=== PATIENT | female | born 1995 | race Caucasian/White ===

== ENCOUNTER 2024-11-29 22:15 | Outpatient (CLI) | payer MEDICAID, SELFPAY ==
[2024-11-29 22:38] VITALS: BP 114/74; PULSE 75; PULSE 77; RESP 16; TEMP 36.8; O2SAT 96
[2024-11-29 22:45] LABS: Appearance Urine Clear (Clear)
[2024-11-29 22:50] LABS: Amnisure Rom* Negative
--- NOTE | 2024-11-29 23:35 | PC.OBNST ---
NST Note NST Note Start: 11/29/24 22:29 Freq: ONCE Status: Active Protocol: Document 11/29/24 23:07 SHLOMO (Rec: 11/29/24 23:08 SHLOMO Castellanos) NST Note 3 Para (# of births) 1 EDC 12/08/24 Gestational Age In 38 Weeks & 5 Days Weeks & Days Patient Presented Leaking fluid with Complaint(s) of Other Complaints Amnisure and UA negative Reactive Yes Appropriate for Yes Gestational Age JIMMY Vasquez RN Date 11/29/24 Reactive Yes Appropriate for Yes Gestational Age JIMMY Vaca RN Date 11/29/24 OB NST charge Yes Complete NST Note Yes via Write Note The provider's electronic signature indicates the NST is reactive/appropriate for gestational age. *Note to provider: If an addendum is required, open the patient's chart and click on the note under the Nurse/Allied Health tab.
== END 2024-11-29 23:18 | disposition home or self-care (01) ==
LOC: OB OUT 22:16 → OB 22:16
PROVIDERS: PCP Family Medicine; Visit Provider Family Medicine
DX: O47.1 False labor at or after 37 completed weeks of gestation (principal); Z3A.38 38 weeks gestation of pregnancy
CPT/HCPCS: 59025; 81001; 84112; 87086; G0463

== ENCOUNTER 2024-12-05 17:01 | Inpatient (IN) | payer MEDICAID, SELFPAY ==
[2024-12-05 17:10] VITALS: PULSE 89; O2SAT 97
[2024-12-05 17:15] VITALS: BP 119/78; PULSE 83; PULSE 84; O2SAT 94
[2024-12-05 17:27] VITALS: BMI 28.6
--- NOTE | 2024-12-05 17:48 | PM.OBHPLI ---
OB - H&P: HPI Labor/Induction History of Present Illness Date Seen: 12/05/24 Chief Complaint: The patient is a 29 year old 3 para 1 at 39.4 weeks gestation by first trimester US, who presents for elective IOL. Chief complaint: IOL- Elective : 3 Para: 1 Narrative: Shabana Heck is a 29 year old at 39.4 weeks' gestation who presents for elective IOL. Has been feeling well. Intermittent contractions and has had some bloody show following cervical checks in clinic. No LOF. Baby has been active. Denies headaches, vision changes, or RUQ pain. 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 History of Present care: good care Labs Blood type: B (+) positive Rubella: immune RPR/VDLR: nonreactive GBS status: positive HBsAG: negative Meds Home Medications and Allergies Home Medications ?Medication ?Instructions ?Recorded ?Confirmed ?Type lamotrigine 200 mg tablet 200 mg PO DAILY 07/30/23 12/05/24 History lisdexamfetamine 10 mg capsule 10 mg PO DAILY 07/30/23 12/05/24 History lisdexamfetamine 20 mg capsule 20 mg PO DAILY 07/30/23 12/05/24 History (Vyvanse) Held on 12/05/24. Instructions: Doctor's Order vitamin no.167-folic acid 1 tab PO DAILY 08/02/24 12/05/24 History 400 mcg-dha 25 mg chewable tablet (One-A-Day ) acyclovir 400 mg tablet 400 mg PO 3XD 11/29/24 12/05/24 History albuterol sulfate 2.5 mg/3 mL 2.5 mg continuous nebulization Q6H 11/29/24 12/05/24 History (0.083 %) solution for nebulization PRN dyspnea Allergies Allergy/AdvReac Type Severity Reaction Status Date / Time Sulfa (Sulfonamide Allergy Intermediate Verified 12/05/24 17:32 Antibiotics) OB - H&P: Exam Physical Exam: Vital signs: Pulse BP Pulse Ox 83 119/78 94 12/05/24 17:15 12/05/24 17:15 12/05/24 17:15 Narrative: Gen: alert, pleasant, NAD Resp: CTA b/l CV: RRR, no murmurs Abd: gravid, nontender to palpation SVE: 1 cm/50%/-3, cephalic FHT: baseline 130, + accels, - decels, moderate variability [place]: uterine irritability OB - Problem Based A/P Additional Plan (1) Term : Status: Acute (2) Positive GBS test: Status: Acute Plan at 39w4d here for elective IOL. GBS positive. 1. IOL - Cook catheter placed with 60cc/60cc at 1740. Patient tolerated well. Discussed that this can remain in for 12 hours or until SROM or sponatenous expulsion. - Plan to begin low-dose Pitocin titration at 00:00 on 12/06. - anticipate 2. GBS positive - begin ABX ppx (ampicillin) along with Pitocin at 00:00 on 12/06 unless more active labor begins prior to this. Elena Bowser DO
[2024-12-05 17:54] VITALS: RESP 16; TEMP 36.8
[2024-12-05 18:58] LABS: Hematocrit 36.1 % (33.0-51.0); Hemoglobin* 12.6 gm/dL (12.0-16.0); Immature Granulocytes Pct Auto 0.5 %; Mean Corpuscular HGB Conc 35 gm/dL (32-36); Mean Corpuscular Hemoglobin 32 pg (26-34); Mean Corpuscular Volume 91 fL (80-100); RDW Coefficient of Variation % 13.1 % (11.5-15.5); Red Blood Count 3.98 m/uL (4.00-5.20); White Blood Count* 12.75 K/uL (4.50-11.00)
[2024-12-05 19:09] LABS: Immature Granulocytes Abs Auto 0.10 K/uL (0.00-0.30); Lymphocytes Absolute Auto 2.40 K/uL (0.90-2.90)
[2024-12-05 19:10] LABS: Slide Review Reflex No
[2024-12-05 20:49] VITALS: PULSE 72; O2SAT 97
[2024-12-05 20:50] VITALS: BP 123/81; PULSE 68; TEMP 36.7
[2024-12-06] VITALS (65 sets, daily range): BP systolic 102–140; BP diastolic 53–88; PULSE 56–88; RESP 16–20; TEMP 36.4–36.8; O2SAT 87–100
[2024-12-06] MEDS: AMPICILLIN 2 GM in 0.9 % SODIUM CHLORIDE Mini-bag 100 ML IVPB (00:04)
[2024-12-06] MEDS: OXYTOCIN 30 unit/500 ML in NS 30 UNIT/500 ML BAG IVPB (00:04)
[2024-12-06] MEDS: LACTATED RINGERS 1000 ML 1,000 ML 75 ML IV (00:05)
[2024-12-06] MEDS: AMPICILLIN 1 GM in 0.9 % SODIUM CHLORIDE Mini-bag 100 ML IVPB ×2 (04:35→08:12)
[2024-12-06] MEDS: LACTATED RINGERS 1000 ML 1,000 ML 1200 ML IV (05:50)
--- NOTE | 2024-12-06 06:25 | PM.ANBPRC ---
[facility] Medical History (Updated 12/05/24 @ 18:04 by Elena Bowser, ) Positive GBS test ?B95.1 - Streptococcus, group B, as the cause of diseases classified elsewhere (ICD-10) Term ?Z34.90 - Encounter for supervision of normal , unspecified, unspecified trimester (ICD-10) Social History What is your current living situation?: I presently have a place to live Problems where you live: no known problems In the past 12 months, utilities in danger of being shut off: no In past 12 months, lack of transportation kept you from medical appts, meetings, work, or getting things needed for daily living: no In the past 12 mos, have been you worried that your food would run out before you had money to buy more?: never true In the past 12 mos, the food you bought just didn't last and you didn't have money to buy more?: never true Smoking Status: Former smoker How often does anyone, including family, friends and others, physically hurt you: never How often does anyone, including family, friends and others, insult or talk down to you: never How often does anyone, including family, friends and others, threaten you with harm: never How often does anyone, including family, friends and others, scream or curse at you: never Meds Home Medications and Allergies Home Medications ?Medication ?Instructions ?Recorded ?Confirmed ?Type lamotrigine 200 mg tablet 200 mg PO DAILY 07/30/23 12/05/24 History lisdexamfetamine 10 mg capsule 10 mg PO DAILY 07/30/23 12/05/24 History lisdexamfetamine 20 mg capsule 20 mg PO DAILY 07/30/23 12/05/24 History (Vyvanse) Held on 12/05/24. Instructions: Doctor's Order vitamin no.167-folic acid 1 tab PO DAILY 08/02/24 12/05/24 History 400 mcg-dha 25 mg chewable tablet (One-A-Day ) acyclovir 400 mg tablet 400 mg PO 3XD 11/29/24 12/05/24 History albuterol sulfate 2.5 mg/3 mL 2.5 mg continuous nebulization Q6H 11/29/24 12/05/24 History (0.083 %) solution for nebulization PRN dyspnea Allergies Allergy/AdvReac Type Severity Reaction Status Date / Time Sulfa (Sulfonamide Allergy Intermediate Verified 12/05/24 17:32 Antibiotics) Results Labs Labs: Laboratory Results - last 24 hr 12/05/24 18:48 WBC 12.75 H RBC 3.98 L Hgb 12.6 Hct 36.1 MCV 91 MCH 32 MCHC 35 RDW Coeff of [place] 13.1 Plt Count 185 Neut % (Auto) 72.9 H Lymph % (Auto) 18.5 L [place] % (Auto) 6.3 Eos % (Auto) 1.6 Baso % (Auto) 0.2 Neut # (Auto) 9.30 H Lymph # (Auto) 2.40 [place] # (Auto) 0.80 Eos # (Auto) 0.20 Baso # (Auto) 0.00 Abs Immat Gran (auto) 0.10 Imm/Tot Granulo (auto) 0.5 Blood Type B Positive Antibody Screen NEGATIVE Vital Signs Vital Signs: Last Vital Signs Temp 98 F 12/06/24 03:43 Pulse 74 12/06/24 06:23 Resp 16 12/05/24 17:54 BP 128/69 12/06/24 06:23 Pulse Ox 90 12/06/24 06:21 Weight: 90.628 kg Height: 177.8 cm Anesthesia Procedures Epidural Insertion Patient Location: OB Start Time: 05:45 Stop Time: 06:25 Start Date: 12/06/24 Stop Date: 12/06/24 Reason for Block: procedure for pain Patient Position: sitting Performed By: Josue Slater Preanesthetic Checklist: IV checked, risks and benefits discussed, surgical consent, monitors and equipment checked, pre-op evaluation, timeout performed and anesthesia consent Prep: chlorhexidine gluconate Monitoring: blood pressure monitoring, continuous pulse oximetry and heart rate Approach: midline Vertebral Space: lumbar (1-5) Epidural Technique: KARI air Needle Type: Tuohy needle Injection Technique: continuous catheter Needle gauge: 17 Needle Length (cm): 10 cm Needle Insertion Depth (cm): 7 Catheter Gauge: 19 Catheter Type: multi-orifice Catheter at skin depth (cm): 13 Test Dose Result: negative and lidocaine 1.5% with epinephrine 1 to 200,000
[2024-12-06] MEDS: ROPIVACAINE 0.2% 100 ml 100 ML 12 MG EPIDURAL (06:28)
[2024-12-06] MEDS: LIDOCAINE 2% (PF) 5 ML VIAL EPIDURAL (06:29)
[2024-12-06] MEDS: LACTATED RINGERS 1000 ML 1,000 ML 1125 ML IV (08:25)
--- NOTE | 2024-12-06 08:42 | P.OBPN_ITS ---
Subjective Date Seen: 12/06/24 Narrative: Called to evaluate patient around 0430 this morning. Had been having int ermittent variable decelerations. Throughout the morning, this continued. However, patient's labor also progressed appropriately and she was completely dilated and began pushing at 0650. Baby continud to have variable decelerations throughout stage II. Objective Vital Signs: Last Vital Signs Temp 97.8 F 12/06/24 06:47 Pulse 64 12/06/24 08:36 Resp 16 12/05/24 17:54 BP 109/56 L 12/06/24 08:36 Pulse Ox 99 12/06/24 06:32 Plan Plan: Consulted Dr. Glaser regarding recurrent variable decelerations. Decision made to proceed with operative vaginal delivery (VAVD). See her documentation for further details.
[2024-12-06] MEDS: ACETAMINOPHEN 500 MG TABLET 1000 MG PO ×3 (09:12→22:15)
--- NOTE | 2024-12-06 10:34 | PM.OBCN1 ---
OB - CN: HPI Date of Consult Time Seen by Provider: 08:05 Date Seen: 12/06/24 Patient: [facility] Patient Consult date: 12/06/24 Requesting Physician: Elena Bowser DO Primary Care Provider: Elena Bowser DO Consult Narrative Narrative: The patient is a 29 year old G 2 P 1 at 39 weeks gestation that was admitted to the Center on 12/05/24 for elective induction of labor. is complicated by history of genital herpes (on suppressive therapy), family history of congenital heart disease (status post normal echo), FOB with cleidocranial dysplasia (s/p MFM consult and US), ADHD, bipolar disorder, history of substance use disorder (mess, in remission since 2018 and THC that was not used in ), asthma. She is an established patient of Dr. Bowser with [facility], please see her note for complete details. Last growth ultrasound with MFM on 09/30/2024 was 54%ile, no risk factors for macrosomia (history of macrosomia, late term gestation, GDM, etc.). Ob curbside occurred around 0755, due to category 2 FHR. On review of the tracing, recurrent variable decelerations were noted with each pushing effort. recovery was noted to be slightly delayed, though there were no recent prolonged decelerations. Baseline between contractions was 150 beats per minute with moderate variability. Reportedly, patient had been making good descent through her pushing process. I recommended a repeat cervical exam to assess for progress in the 2nd stage. Patient was noted to be 10/100 and +3 station. She then had a prolonged deceleration at 0805, where Ob consultation was requested for consideration of operative vaginal delivery. I presented the bedside, introduced myself the patient and partner. Pitocin was turned off. Maternal repositioning efforts were ongoing, IV fluid bolus ongoing. She consented to a cervical exam, where she was noted to be complete and +2 station. position was suspected to be direct OA. At the time of this exam, baby was in a prolonged deceleration where FSE was requested. Verbal consent obtained and FSE was applied. Discussed with patient that I would like to monitor pushing effort with her, to assess for descent. Reportedly, she has made descent from 0 to +2 station in her 1 hour of pushing. Still, I explained that this is vital component of my assessment in terms of her candidacy for an operative vaginal delivery. With her next two pushing efforts, descent was noted from +2 to +3. heart rate tracing continue to be notable for recurrent variable decelerations with a slow return to baseline with maintained moderate variability. Still, given concern for nonreassuring status I did discuss with her the process of an operative vaginal delivery. Explained the respective risks/benefits of an operative vaginal delivery with both forceps and vacuum modalities, including risk of obstetric laceration (3/4 degree), shoulder dystocia, hemorrhage, scalp bruising, cephalohematoma, intracranial bleeding, laceration, nerve palsy. Given multiparity and demonstrated descent with exams, I do feel patient is a reasonable candidate for vacuum assisted vaginal delivery. After counseling, verbal consent was provided at approximately 0812. OR crew was notified to present in case of failed operative vaginal delivery. She continued to push with contractions while this conversation was ongoing, where at 0816 recurrent variables persisted but there were no further prolonged decelerations and return to baseline occurred more readily. Moderate variability and normal baseline was still noted. Excellent maternal effort and descent was noted, where VAVD was not emergently required and thus 1 last attempt at was completed. Ultimately, she had another variable in to prolonged deceleration at 0823 where I recommended we proceed to outlet VAVD as delivery was not imminent. Patient provided verbal consent again. Please see subsequent delivery note for details. Dr. Bowser to serve as Pediatrics provider in the setting of operative vaginal delivery. History History 3 Elective abortions Para 2 Spontaneous abortions Hx # Term Pregnancies Ectopic pregnancies Hx # Pregnancies Multiple births Number of Living Children 1 Labs Blood type: B (+) positive Rubella: immune RPR/VDLR: nonreactive GBS status: positive HBsAG: negative OB Labs: Lab Assessment Start: 12/05/24 17:25 Freq: ONCE Status: Complete Protocol: PC.OBGBS Activity Type Activity Date Activity User E-sign Co-sign Detail Recorded Client Recorded Date Recorded By Document 12/05/24 17:25 AB No Response 12/05/24 17:26 ABH 12/05/24 17:25 Lab Assessment GBS Status positive Is Patient Allergic to Penicillin? No Treatment Required OK Are Labs Available Yes Maternal Blood Type B Maternal RH Factor Positive Evaluate Maternal Rubella Immune Status Immune Hepatitis B Surface Antigen Negative Maternal HIV Status Negative Maternal Syphillis (RPR) Status Negative PFSH [facility] Medical History (Updated 12/05/24 @ 18:04 by Elena Bowser DO) Positive GBS test ?B95.1 - Streptococcus, group B, as the cause of diseases classified elsewhere (ICD-10) Term ?Z34.90 - Encounter for supervision of normal , unspecified, unspecified trimester (ICD-10) Social History What is your current living situation?: I presently have a place to live Problems where you live: no known problems In the past 12 months, utilities in danger of being shut off: no In past 12 months, lack of transportation kept you from medical appts, meetings, work, or getting things needed for daily living: no In the past 12 mos, have been you worried that your food would run out before you had money to buy more?: never true In the past 12 mos, the food you bought just didn't last and you didn't have money to buy more?: never true Smoking Status: Former smoker How often does anyone, including family, friends and others, physically hurt you: never How often does anyone, including family, friends and others, insult or talk down to you: never How often does anyone, including family, friends and others, threaten you with harm: never How often does anyone, including family, friends and others, scream or curse at you: never Meds Home Medications and Allergies Home Medications ?Medication ?Instructions ?Recorded ?Confirmed ?Type lamotrigine 200 mg tablet 200 mg PO DAILY 07/30/23 12/05/24 History lisdexamfetamine 10 mg capsule 10 mg PO DAILY 07/30/23 12/05/24 History lisdexamfetamine 20 mg capsule 20 mg PO DAILY 07/30/23 12/05/24 History (Vyvanse) Held on 12/05/24. Instructions: Doctor's Order vitamin no.167-folic acid 1 tab PO DAILY 08/02/24 12/05/24 History 400 mcg-dha 25 mg chewable tablet (One-A-Day ) acyclovir 400 mg tablet 400 mg PO 3XD 11/29/24 12/05/24 History albuterol sulfate 2.5 mg/3 mL 2.5 mg continuous nebulization Q6H 11/29/24 12/05/24 History (0.083 %) solution for nebulization PRN dyspnea Allergies Allergy/AdvReac Type Severity Reaction Status Date / Time Sulfa (Sulfonamide Allergy Intermediate Verified 12/05/24 17:32 Antibiotics) OB - H&P: Exam Physical Exam: Vital signs: Temp Pulse Resp BP Pulse Ox 97.8 F 67 16 111/69 99 12/06/24 06:47 12/06/24 10:19 12/05/24 17:54 12/06/24 10:19 12/06/24 06:32 OB - Results Labs Labs: Short CBC 12/05/24 Range/Units 18:48 WBC 12.75 H (4.50-11.00) K/uL Hgb 12.6 (12.0-16.0) gm/dL Hct 36.1 (33.0-51.0) % Plt Count 185 (140-440) K/uL OB - CN: A/P Assessment and Plan (1) Term : Status: Acute (2) Positive GBS test: Status: Acute
--- NOTE | 2024-12-06 10:50 | W.PM.VAGDEL1 ---
Procedure Procedure Done: only (Vacuum-assisted vaginal delivery) Procedure Details: Vacuum assisted vaginal delivery Events: Labor Induction and Other (genital herpes (on suppressive therapy), asthma, bipolar disorder, ADHD, history of substance use disorder, FHx of congenital heart disease, FOB with cleidocranial dysplasia) Intrapartal Events: Labor Induction Delivery augmentation: pitocin Delivery monitor: internal FHT Route of delivery: vacuum extraction Indication for instrumentation: nonreassuring FHR tracing Laceration description: None Estimated blood loss (mL): 25 Anesthesia type: Epidural Disposition: floor Complications: Persistent category 2 FHR tracing necessitating expedited delivery with vacuum-assistance Narrative: Danyelle Heck is a 29 year old G 2 P 1 at 39w5d GA that was admitted to the Center on 12/05/24 for elective induction of labor. is complicated by history of genital herpes (on suppressive therapy), family history of congenital heart disease (status post normal echo), FOB with cleidocranial dysplasia (s/p MFM consult and US), ADHD, bipolar disorder, history of substance use disorder (mess, in remission since 2017 and THC that was not used in ), asthma. heart tones on admission were category 1. She is an established patient of Dr. Mague Bass. Her labor was induced with Cook catheter, Pitocin and epidural was utilized for pain management. Status of bag of hernandez: AROM at 0530 but no apparent fluid was expressed, meconium noted at time of delivery. heart tones during active labor were category 2. She was complete at 0637 and started pushing at 0650. Ob consultation was requested at 0805 in the setting of non-reassuring heart tones for consideration of operative delivery. See my prior consult note for details. Briefly, patient was noted to make excellent descent from +2 to +4 during 20 minutes from 0805 to 0825 where I was present and at the bedside actively coaching her through pushing. She verbally consented for operative vaginal delivery, where consent was provided at about 0812 but given her good progress and temporarily improved recovery this was deferred in hopes of imminent . At approximately 0826 baby was noted to have another recurrent variable to a radha of 70bpm that was prolonged. Recommendation for operative vaginal delivery via vacuum assisted vaginal delivery was officially given, patient again provided verbal consent to proceed. Patient's bladder had been recently emptied, status post catheter removal. Vaginal exam revealed adequate pelvis, fetus in suspected direct OA position, +3 station. EFW was not precisely known as I was consulted during the 2nd stage, but a 3rd trimester growth ultrasound was performed with EFW in the 54th percentile and patient had no risk factors for macrosomia. At 0827, a Kiwi vacuum device was applied over the sagittal suture, approximately 3cm in front of the suspected posterior fontanelle. Vacuum pressure was created with hand pump, not to exceed 500mmgHg (green zone). The edge of the vacuum cup was carefully palpated, to confirm no maternal tissue was entrapped under the cup. With the next contraction, the left hand was applied to the vacuum cup to apply counter provide pressure (and prevent pop-off) while gentle horizontal traction was applied along the pelvic axis. Vacuum traction was applied in coordination with uterine contraction and maternal pushing effort. Excellent descent was noted, where handle of vacuum was gradually elevated with vertex descending to . The head delivered atraumatically in direct OP position, where vacuum seal was released. The anterior and posterior shoulders delivered without difficulty and the infant delivered at 0829. Vacuum assisted vaginal delivery occurred across a single maternal expulsive effort, with approximately 60 seconds of traction applied. No pop off occurred. Total vacuum application time of approximately 2 minutes. Nuchal cord: Absent, though cord was noted to be adjacent to the body at the level of the shoulders upon delivery. Liveborn male was stimulated, where immediate assessment was noted to include adequate tone, FHR >100bpm and grimace. Decision was made to clamp and cut cord after 30 seconds of delayed cord clamping in order to allow for Pediatrics evaluation and potential resuscitation. Active management of the third stage occurred with IV pitocin and gentle cord traction and the placenta delivered spontaneous and intact at 0834. Cord gases sent: no Cord blood sent for ABO: yes details: - Liveborn male fetus at 0829 - weight 7lb 4oz - APGARs were 7 and 9 at 1 and 5 minutes respectively - where baby did not require any resuscitation aside from stimulation - Arterial cord gas notable for pH of 7.11, pCO2 of 77, bicarb 24, base excess of -7.6 consistent with a mild mixed acidosis Perineum and vagina were inspected, and the following lacerations were noted: None, no repair needed. Excellent uterine tone noted. Excellent hemostasis was noted. The following counts were correct: sponges, needles, instruments. Mother and in stable condition following the . [place] Gender: Male presentation: vertex Placental Delivery Description: Spontaneous Cord Description: 3 Vessels total score - 1 minute: 7 total score - 5 minute: 9
[2024-12-06] MEDS: IBUPROFEN 600 MG TABLET PO ×2 (14:27→20:35)
--- NOTE | 2024-12-06 18:54 | PM.ANPOST ---
Post Anesthesia Note Post Anesthesia Note Patient seen: Inpatient Respiratory Status: adequate Cardiovascular Status: adequate Mental Status: baseline Pain: adequate Temp: baseline Anesthetic awareness: N/A Complications: none Follow care: none
[2024-12-07 00:43] VITALS: BP 118/80; PULSE 75; RESP 16; O2SAT 97
[2024-12-07 04:11] VITALS: PULSE 68; RESP 18; O2SAT 99
[2024-12-07 06:22] LABS: Hemoglobin* 10.8 gm/dL (12.0-16.0)
[2024-12-07 09:00] VITALS: BP 118/75; PULSE 75; RESP 16; TEMP 36.9; O2SAT 97
--- NOTE | 2024-12-07 09:00 | P.DS_ITS ---
DS: Providers Provider Date Seen: 12/07/24 Date of admission: 12/05/24 17:01 Primary care physician: Elena Bowser DO Admitting Clinician: Elena Bowser DO Attending Physician on discharge: Elena Bowser DO Date of Discharge: 12/07/24 DS: Diagnosis Discharge Diagnosis (1) Status post vacuum-assisted vaginal delivery: Status: Acute Exam Narrative: Exam Narrative: Gen: alert, pleasant, NAD Resp: breathing comfortably on RA, CTA b/l Heart: RRR, no murmurs Abd: fundus firm at umbilicus Const: Vital Signs, click to edit/add: Vital Signs - 24 hr 12/06/24 09:04 12/06/24 09:04 12/06/24 09:19 Temperature Pulse Rate 66 72 Pulse Rate [Pulse Oximeter] Respiratory Rate 18 Blood Pressure 111/56 L 109/61 Blood Pressure [Ri ght Arm] Pulse Oximetry Oxygen Delivery Me thod 12/06/24 09:19 12/06/24 09:34 12/06/24 09:34 Temperature Pulse Rate 69 Pulse Rate [Pulse Oximeter] Respiratory Rate 18 18 Blood Pressure 109/61 Blood Pressure [Ri ght Arm] Pulse Oximetry Oxygen Delivery Me thod 12/06/24 09:49 12/06/24 09:49 12/06/24 10:04 Temperature Pulse Rate 85 67 Pulse Rate [Pulse Oximeter] Respiratory Rate 18 Blood Pressure 105/66 106/69 Blood Pressure [Ri ght Arm] Pulse Oximetry Oxygen Delivery Me thod 12/06/24 10:04 12/06/24 10:19 12/06/24 10:19 Temperature Pulse Rate 67 Pulse Rate [Pulse Oximeter] Respiratory Rate 18 18 Blood Pressure 111/69 Blood Pressure [Ri ght Arm] Pulse Oximetry Oxygen Delivery Me thod 12/06/24 10:49 12/06/24 14:25 12/06/24 19:34 Temperature 98 F 97.6 F Pulse Rate Pulse Rate [Pulse Oximeter] 65 70 Respiratory Rate 18 16 20 Blood Pressure Blood Pressure [Ri ght Arm] 103/53 L 122/73 Pulse Oximetry 97 96 Oxygen Delivery Me thod Room Air Room Air 12/07/24 00:43 12/07/24 04:11 Temperature Pulse Rate Pulse Rate [Pulse Oximeter] 75 68 Respiratory Rate 16 18 Blood Pressure Blood Pressure [Ri ght Arm] 118/80 Pulse Oximetry 97 99 Oxygen Delivery Me thod Room Air OB - DS: Summary Hospital Course Hospital Course: The patient is a 29 year old G 3 P 2 that was admitted to the Center on 12/05/24 for elective IOL. She had a vacuum-assisted vaginal delivery on 12/06/24 delivery at 39.5 weeks' gestation. Indication for VAVD was recurrent, prolonged variable decelerations in the second stage. She delivered a viable male . She is feeding. the patient has done well. Pain and bleeding are appropriate. Ambulating independently. Peripartum Data delivery method: Vacuum Laceration description: None complications: none Infant Gender: Male Discharge Plan: Home Time Spent with Patient Time attestation: Total time spent providing and/or coordinating discharge services: Discharge Plan Discharge Disposition: Home, Self-Care Date of Admission: 12/05/24 17:01 Attending Provider on Discharge: Elena Bowser Consulting Providers: Marian Glaser Primary Care Provider: Elena Bowser Condition: Stable Anticipated Discharge Date/Time: 12/07/24 09:07 Discharge Medications: New acetaminophen 500 mg Tablet 1,000 mg PO Q6H PRNQty: 40 0RF docusate sodium 100 mg Capsule 100 mg PO DAILY Qty: 20 0RF ibuprofen 600 mg Tablet 600 mg PO Q6H PRNQty: 20 0RF Continued One-A-Day 400 mcg- 25 mg tablet,chewable 1 tab PO DAILY lamotrigine 200 mg tablet 200 mg PO DAILY lisdexamfetamine 10 mg capsule 10 mg PO DAILY albuterol sulfate 2.5 mg /3 mL (0.083 %) solution for nebulization 2.5 mg continuous nebulization Q6H PRN (Reason: dyspnea) Discontinued lisdexamfetamine [Vyvanse] 20 mg capsule 20 mg PO DAILY acyclovir 400 mg tablet 400 mg PO 3XD Discharge Orders: Discharge Order (Routine); Ordered 12/07/24 Ordered By: Elena Bowser Patient Education: Vaginal Delivery (DC) Follow Up Appointments: Elena Bowser, [Primary Care Provider, Family Practice] [facility] Inst[facility] Discharge Comments: Follow up in 6 weeks with primary OB provider, Dr. Bowser, for visit. Increase vitaminD3 to 4000 IU total daily.
[2024-12-07] MEDS: IBUPROFEN 600 MG TABLET PO (11:11)
== END 2024-12-07 11:30 | disposition home or self-care (01) | DRG 806 ==
PROVIDERS: Obstetrics & Gynecology; Admitting Provider Obstetrics & Gynecology; PCP Family Medicine; Visit Provider Family Medicine
DX: O99.824 Streptococcus B carrier state complicating childbirth (principal); O98.32 Other infections with a predominantly sexual mode of transmission complicating childbirth; Z37.0 Single live birth; O76 Abnormality in fetal heart rate and rhythm complicating labor and delivery; F90.9 Attention-deficit hyperactivity disorder, unspecified type; F31.9 Bipolar disorder, unspecified; A60.00 Herpesviral infection of urogenital system, unspecified; F15.11 Other stimulant abuse, in remission; J45.20 Mild intermittent asthma, uncomplicated; Z3A.39 39 weeks gestation of pregnancy
CPT/HCPCS: 01967; 36415; 59200; 85018; 85025; 86592; 86850; 86900; 86901; A9270; C1726; J0290; J2795; J7120

== ENCOUNTER 2024-12-19 10:46 | Outpatient (CLI) | payer MEDICAID, SELFPAY ==
--- NOTE | 2024-12-19 12:53 | W.PM.LAC.MC ---
Consult Note - Mom Date of Visit Date of visit: 12/19/24 Reason for consultation: Assistance Needed (latching and milk transfer) Visit Code: Visit Patient's Information Phone number: [phone] : 3 Para: 2 Allergies Sulfa (Sulfonamide Antibiotics) Allergy (Intermediate, Verified 12/05/24 17:32) Mother's Medical History: Medical History (Updated 12/15/24 @ 00:01 by Background Daemon) Status post vacuum-assisted vaginal delivery ?Z87.59 - Personal history of other complications of , childbirth and the puerperium (ICD-10) Positive GBS test ?B95.1 - Streptococcus, group B, as the cause of diseases classified elsewhere (ICD-10) Term ?Z34.90 - Encounter for supervision of normal , unspecified, unspecified trimester (ICD-10) Work Plans: 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, 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, will be able to have baby at center with her Delivery Information Delivery type: Vacuum Gestational Age: 39+5 Gestational Weight For Age: AGA Weight: 3.29 kg Discharge Weight: 3.189 kg Percentage weight loss: 3.1 Baby's Information Baby's Age at Visit: 13 days Baby's Provider or Clinic: [facility] Jaundice: No Past Experience Past Experience: Yes (for 2.5 months, didn't go well &gave up, hopes for longer with this baby) Current Frequency of Day Feedings: every 2.5-3 hours Frequency of Night Feedings: every 3 hours, sometimes hard to wake up Latch: currently not latching, just bottle feeding EBM Goals: was 1 year, maybe at least 6 months if can't get baby latched Pumping Pumping: Yes Quantity Pumped: L 2.5-4 oz; R 1.5-3 oz every 2-3 hrs Supplementing EBM Supplement: Yes (takes 2-3 oz/feeding) Formula Supplement: No Baby Elimination Number of Wet Diapers a Day: ea feeding Number of BM a Day: 6 or more/day, some larger some smaller Breast/Nipple Condition Breast Information: Breasts are symmetrical with rounded lower quadrants, intramammary distance is less than 1.5 inches. No erythema. Nipples are supple, everted prior to feeding. Breast Shape: Round and Firm Engorgement: No Maternal Nipple Condition - Left: Common Nipple Maternal Nipple Condition - Right: Common Nipple Sore Nipples: No Baby Assessment Skin: Normal Tongue/frenulum: Restricted mid-range (slight; TABBY 6-7) Palate: Average Lips: Relaxed and Symmetrical Jaw Alignment: Symmetrical Mucosa: [place], moist Onsite Observation Pre-Feed weight: 3.288 kg Post-Feed weight: 3.336 kg Milk Transferred (mL): 48 Position: Cross cradle Attachment/latch-on achieved: Easily Suck pattern: Suck burst and normal rest Swallow: Audible, consistent Behavior following feed: Relaxed, sleepy (after 2nd side) and Alert, content (after 1st side) Pre-Nursing Left Nipple: Within Normal Limits Pre-Nursing Right Nipple: Within Normal Limits Post-Nursing Left Nipple: Within Normal Limits Post-Nursing Right Nipple: Within Normal Limits Assessments/Interventions Assessments/Interventions: Anastasia latched easily to mom's LEFT breast, latched deeply and comfortably per mom and stayed nursing for 13 minutes. Transferred 30 ml of milk Anastasia then latched to mom's RIGHT breast, latched deeply, initially came off and took a short rest of 5 minutes, then latched on again and nursed for another 15 minutes. Transferred 18 ml of milk. Came off the breast and was content. Mom offered the left side again since that breast makes more milk and baby kept mouth closed and declined feeding. Anastasia needed gently head/neck support to stay latched bu really did quite well since hasn't nursed at the breast since d/c from the hospital. Education provided: Early feeding cues to maximize timing of latching, Asymmetric latch technique for wide/deep latch to increase milk, Transfer for baby and increase comfort for mom, Supply/demand nature of milk supply, Need for frequent stimulation/milk removal, Alternative feeding methods (SNS, cup, finger feeding, bottling) and Pumping for milk management (may need to relieve fullness as needed due to change in feeding at the breast vs full pumpings she's been doing) Feeding Plan: Feed every 2-3 hours; if baby is taking less volume at the breast than he has from the bottle, may notice more frequent feedings for a bit of time as he builds his stamina at the breast. Ok to continue to pump and bottle 1-2 feeds/day if desired given their current routine Pump after AM feeding if would like to build a freezer supply. Monitor voids and stools, should continue to see same amounts as switch from bottles to more breast feeding. Follow-Up Suggested follow up: Appointment as needed (for repeat weighted feed) Recommend baby be seen by provider for:: [facility] scheduled for 12/22/24 to check progress with feeding and weight gain Time Spent Time spent with patient (min): 75 Meds Home Medications and Allergies Home Medications ?Medication ?Instructions ?Recorded ?Confirmed ?Type lamotrigine 200 mg tablet 200 mg PO DAILY 07/30/23 12/05/24 History lisdexamfetamine 10 mg capsule 10 mg PO DAILY 07/30/23 12/05/24 History vitamin no.167-folic acid 1 tab PO DAILY 08/02/24 12/05/24 History 400 mcg-dha 25 mg chewable tablet (One-A-Day ) albuterol sulfate 2.5 mg/3 mL 2.5 mg continuous nebulization Q6H 11/29/24 12/05/24 History (0.083 %) solution for nebulization PRN dyspnea acetaminophen 500 mg tablet 1,000 mg (2 x 500 mg) PO Q6H PRN 12/07/24 Rx #40 tabs docusate sodium 100 mg capsule 100 mg PO DAILY #20 caps 12/07/24 Rx ibuprofen 600 mg tablet 600 mg PO Q6H PRN #20 tabs 12/07/24 Rx Allergies Allergy/AdvReac Type Severity Reaction Status Date / Time Sulfa (Sulfonamide Allergy Intermediate Verified 12/05/24 17:32 Antibiotics)
== END 2024-12-19 10:47 | disposition home or self-care (01) ==
PROVIDERS: PCP Family Medicine; Visit Provider Student in an Organized Health Care Education/Training Program
DX: Z39.1 Encounter for care and examination of lactating mother (principal)
CPT/HCPCS: G0463